=== PATIENT | male | born 1995 | race Caucasian/White ===

== ENCOUNTER 2017-11-04 22:30 | Emergency (ER) | END 2017-11-05 01:04 | disposition left against medical advice (07) | LOC: ER 22:30 | DX: Z53.21 Procedure and treatment not carried out due to patient leaving prior to being seen by health care provider (principal) ==

== ENCOUNTER 2017-12-17 22:40 | Emergency (ER) | payer SELFPAY ==
--- NOTE | 2017-12-18 00:11 | ER Document Report ---
ED General - General Chief Complaint: Groin Pain Stated Complaint: LUMP IN PELVIC AREA Time Seen by Provider: 12/17/17 23:59 Notes: Patient is a 22-year-old male who presents with complaint of a lump in his right inguinal area. This happened about a week ago. It is a little sore over the area. Denies any testicular pain or swelling. Denies abnormal penile discharge. He says he has noticed that he is having a little bit discomfort when he urinates but is mild. No bloody stools. No vomiting. No abdominal pain. No fevers. No other complaints at this time. TRAVEL OUTSIDE OF THE [place] IN LAST 30 DAYS: No Past Medical History - Social History Smoking Status: Never Smoker Frequency of alcohol use: None Drug Abuse: None Family History: Reviewed & Not Pertinent Review of Systems - Review of Systems Notes: My Normal Review Basic REVIEW OF SYSTEMS: CONSTITUTIONAL : Denies fever, chills, or sweats. Denies recent illness. RESPIRATORY: Denies cough, cold, or chest congestion. Denies shortness of breath, difficulty breathing, or wheezing. GASTROINTESTINAL: Denies abdominal pain. Denies nausea, vomiting, or diarrhea. GENITOURINARY: Denies difficulty urinating, painful urination, burning, frequency, or blood in urine. MUSCULOSKELETAL: Denies neck or back pain or joint pain or swelling. SKIN: Denies rash or skin lesions. NEUROLOGICAL: Denies altered mental status or loss of consciousness. Denies headache. Denies weakness or paralysis or loss of use of either side. Denies problems with gait or speech. Denies sensory or motor loss. ALL OTHER SYSTEMS REVIEWED AND NEGATIVE. Physical Exam - Vital signs Vitals: Temp Pulse Resp BP Pulse Ox 98.7 F 76 18 131/73 H 96 12/17/17 22:47 12/17/17 22:47 12/17/17 22:47 12/17/17 22:47 12/17/17 22:47 - Notes Notes: General Appearance: Well nourished, alert, cooperative, no acute distress, no obvious discomfort. Vitals: reviewed, See vital signs table. Eyes: PERRL, EOMI, Conjuctiva clear Mouth: No decreasd moisture Abdomen: Normal BS, soft, No rigidity, No abdominal tenderness, No guarding, no rebound, no abdominal masses, no organomegaly Genital: Patient has no swelling or tenderness to palpation of testicle region. Patient has a firm circumcised area in the right inguinal area consistent with a enlarged lymph node. Extremities: strength 5/5 in all extremities, good pulses in all extremities, no swelling or tenderness in the extremities, no edema. Skin: warm, dry, appropriate color, no rash Neuro: speech clear, oriented x 3, normal affect, responds appropriately to questions. Course - Re-evaluation Re-evalutation: 12/18/17 02:01 Patient's ultrasound does not show any evidence of testicular mass or cancer. Patient's exam is not concerning for infection or pain or swelling. Patient does have what on exam appears to be a lymph node that is large in the right inguinal area. Informed the patient that he will need this reevaluated next 2 weeks by primary care doctor and arrange for repeat ultrasound to make sure it is not increasing in size. Although I think cancer is unlikely, I informed him that this is important to do as if the lymph node continues to increase in size he may need biopsy or further intervention to rule out potential malignancy or cancer. Patient agrees with plan patient will be discharged home. Patient encouraged to return to ER if he has significant increase in size of the lymph node, redness or swelling to the area, fevers, or feels unwell. Dictation of this chart was performed using voice recognition software; therefore, there may be some unintended grammatical errors. - Vital Signs Vital signs: Temp Pulse Resp BP Pulse Ox 98.7 F 76 18 131/73 H 96 12/17/17 22:47 12/17/17 22:47 12/17/17 22:47 12/17/17 22:47 12/17/17 22:47 - Laboratory Laboratory results interpreted by me: 12/18/17 00:58 Urine Protein 30 H Urine Urobilinogen 4.0 H Ur Leukocyte Esterase TRACE H Discharge - Discharge Clinical Impression: enlarged inguinal lymph node Condition: Good Disposition: HOME, SELF-CARE Instructions: Family Physicians / Practices Additional Instructions: Your exam is consistent with that of an enlarged lymph node. The cause of an enlarged lymph node is usually nothing dangerous, but on occasion can be related to infection or cancer. You ultrasound shows no evidence of testicular cancer. Your urinalysis and exam shows no evidence of infection. Please follow up with a primary care doctor for reevaluation and to arrange for a repeat ultrasound of the knot in your inguinal area in the next 2 weeks to month. please return to the ER immediately if you feel that the knot is significantly increasing in size, is becoming more painful, is red or swollen, you have fevers , or if you have further concerns. Forms: Return to Work
[2017-12-18 01:19] LABS: APPEARANCE,URINE SLIGHTLY-CLOUDY; BILIRUBIN,URINE NEGATIVE (NEGATIVE); COLOR,URINE YELLOW; GLUCOSE, URINE NEGATIVE (NEGATIVE); KETONES,URINE NEGATIVE (NEGATIVE); LEUKOCYTE ESTERASE,URINE TRACE (NEGATIVE); NITRITE,URINE NEGATIVE (NEGATIVE); PROTEIN,URINE 30 mg/dL (NEGATIVE)
--- NOTE | 2017-12-18 01:42 | RADIOLOGY REPORT (SQ) ---
EXAM DESCRIPTION: U/S SCROTUM W/DOPPLER CLINICAL HISTORY: 22 years, Male, inguinal lymphadenopathy on right COMPARISON: None. LIMITATIONS: None. FINDINGS: 2.9 x 2.7 x 1.9 cm well-defined hypoechoic heterogeneous, right inguinal solid mass with vascularity demonstrated on Doppler sonogram may indicate an enlarged lymph node or other neoplasm. 4.0 cm right testis, 3.6 cm left testis, bilateral epididymides, minimal bilateral hydrocele, and scrotum appear otherwise unremarkable. IMPRESSION: 1. A 2.9 cm right inguinal mass may indicate an enlarged lymph node or other neoplasm. 2. Normal testes.
[2017-12-18 02:29] VITALS: BP 119/64
== END 2017-12-18 02:29 | disposition home or self-care (01) ==
LOC: ER 22:40
DX: R59.1 Generalized enlarged lymph nodes (principal)
CPT/HCPCS: 76870; 81001; 93976; 99284

== ENCOUNTER 2018-02-23 18:45 | Emergency (ER) | payer SELFPAY ==
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
[2018-02-23 21:34] VITALS: BP 105/53
== END 2018-02-23 21:35 | disposition home or self-care (01) ==
LOC: ER 18:45
DX: L97.819 Non-pressure chronic ulcer of other part of right lower leg with unspecified severity (principal); F17.200 Nicotine dependence, unspecified, uncomplicated
CPT/HCPCS: 99282

== ENCOUNTER 2019-10-17 18:59 | Emergency (ER) | payer SELFPAY ==
[2019-10-17 19:07] VITALS: BP 126/66
[2019-10-17] MEDS ORDERED: SILVER SULFADIAZINE 1% CREAM 50 GM TP ONE (19:30)
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
== END 2019-10-17 19:59 | disposition home or self-care (01) ==
LOC: ER 18:59
DX: T22.011A Burn of unspecified degree of right forearm, initial encounter (principal); F17.210 Nicotine dependence, cigarettes, uncomplicated; X10.2XXA Contact with fats and cooking oils, initial encounter
CPT/HCPCS: 99283; J3490